=== PATIENT | female | born 1950 | race Caucasian/White ===

== ENCOUNTER 2017-08-15 05:32 | Day surgery (SDC) | payer OTHER ==
[~2017-08-15] VITALS: Ht 157.5 cm; Wt 49.9 kg
[2017-08-15] MEDS ORDERED: CEFAZOLIN 1 GM IVPB PREMIX 50 ML IV ONE (07:00)
[2017-08-15] MEDS ORDERED: IOHEXOL 50 ML IV ONE (07:19)
[2017-08-15] MEDS ORDERED: LR 1,000 ML IV SCH (08:10)
[2017-08-15] MEDS ORDERED: MORPHINE 4 MG/ML INJ. SYRINGE IVP PRN ×2 (08:15)
[2017-08-15] MEDS ORDERED: D5/0.45 NS 1,000 ML IV SCH (08:42)
[2017-08-15] MEDS ORDERED: HYDROmorphone 1 MG INJ. 1 MG/ML AMPUL IVP PRN (08:45)
[2017-08-15] MEDS ORDERED: HYDROcodone/ACETAMIN 5-325 MG TAB (NORCO/ VICODIN) PO PRN ×2 (08:45)
[2017-08-15] MEDS: MORPHINE 4 MG/ML INJ. SYRINGE IVP PRN ×2 (08:50→09:00)
[2017-08-15] MEDS ORDERED: MORPHINE 4 MG/ML INJ. SYRINGE ONE (08:57)
[2017-08-15] MEDS ORDERED: HYDROcodone/ACETAMIN 5-325 MG TAB (NORCO/ VICODIN) ONE (10:00)
[2017-08-15] MEDS: METOCLOPRAMIDE HCL 10 MG/2 ML VIAL IVP PRN ×2 (10:15→10:45)
[2017-08-15 13:10] VITALS: BP_SYST 150
== END 2017-08-15 14:00 | disposition home or self-care (01) ==
LOC: SDS 05:32 → SMU 08:11 → SDS 14:00
PROVIDERS: ATTEND Colon & Rectal Surgery
DX: K81.1 Chronic cholecystitis (principal); J30.9 Allergic rhinitis, unspecified; I10 Essential (primary) hypertension; Z98.890 Other specified postprocedural states; Z82.49 Family history of ischemic heart disease and other diseases of the circulatory system; Z80.3 Family history of malignant neoplasm of breast; Z79.899 Other long term (current) drug therapy
CPT/HCPCS: 47563; 74300; 88304; J0690; J2270; J2765; J7120; Q9967